=== PATIENT | male | born 2000 | race African-American/Black ===

== ENCOUNTER 2023-08-03 11:16 | Emergency (ER) | payer MEDICAID ==
[~2023-08-03] VITALS: Ht 170.2 cm; Wt 63.0 kg
[2023-08-03 11:26] VITALS: BP 117/63; PULSE 69; RESP 20; TEMP 98.7; O2SAT 100
[2023-08-03] MEDS ORDERED: ACET-2708 MT (12:42)
[2023-08-03] MEDS ORDERED: IBUP-2028 MT (12:48)
[2023-08-03] MEDS ORDERED: KETOROLAC 60MG/2ML VIAL IM ONE (13:30)
== END 2023-08-03 13:30 | disposition home or self-care (01) ==
LOC: ER 11:16
DX: M25.511 Pain in right shoulder (principal)
CPT/HCPCS: 73030; 99283

== ENCOUNTER 2023-09-30 13:06 | Emergency (ER) | payer MEDICAID ==
[~2023-09-30] VITALS: Ht 165.1 cm; Wt 75.0 kg
[~2023-09-30 13:06] MED LIST: ACET-2708 MT; IBUP-2028 MT
[2023-09-30 13:24] VITALS: BP 119/78; PULSE 101; RESP 18; TEMP 97.9; O2SAT 100
[2023-09-30] MEDS ORDERED: ACETAMINOPHEN 325MG TABLET PO ONE (14:45)
[2023-09-30] MEDS ORDERED: IBUPROFEN 600MG TABLET PO ONE (14:45)
[2023-09-30] MEDS ORDERED: TOPUD MT (16:33)
[2023-09-30] MEDS ORDERED: IBUP-1523 MT (16:33)
== END 2023-09-30 17:14 | disposition home or self-care (01) ==
LOC: ER 13:06
DX: M25.531 Pain in right wrist (principal)
CPT/HCPCS: 73110; 99283